=== PATIENT | male | born 1985 | race Two or more races ===

== ENCOUNTER 2016-11-20 00:03 | Emergency (ER) | payer MEDICAID ==
[~2016-11-20] VITALS: Ht 182.9 cm; Wt 99.8 kg
[2016-11-20] MEDS ORDERED: NALOXONE HCL 0.4 MG/ML VIAL ONE (00:09)
[2016-11-20 00:27] VITALS: BP 138/83
[2016-11-20] MEDS ORDERED: NALOXONE HCL 0.4 MG/ML VIAL IV ONE (00:45)
== END 2016-11-20 00:51 | disposition left against medical advice (07) ==
LOC: ER 00:03 → EDBD 00:03 → ER 00:51
DX: T40.1X1A Poisoning by heroin, accidental (unintentional), initial encounter (principal); Y92.9 Unspecified place or not applicable; Z53.21 Procedure and treatment not carried out due to patient leaving prior to being seen by health care provider
CPT/HCPCS: 93005; 94761; 96374; J2310